=== PATIENT | female | born 1965 | race Caucasian/White ===

== ENCOUNTER → 2017-03-11 | Outpatient (CLI) | payer OTHER | LOC: FIMAGING 10:22 | PROVIDERS: ATTEND Family Medicine | DX: Z12.31 Encounter for screening mammogram for malignant neoplasm of breast (principal) | CPT/HCPCS: G0202 ==

== ENCOUNTER → 2017-04-18 | Outpatient (CLI) | payer OTHER | LOC: CIMAGING 15:52 | PROVIDERS: ATTEND Physician Assistant Medical | DX: M79.642 Pain in left hand (principal) | CPT/HCPCS: 73130-PO ==

== ENCOUNTER 2017-05-11 21:02 | Emergency (ER) | payer OTHER ==
--- NOTE | 2017-05-11 21:25 | CPEKG ---
Heart Rate: 83 RR Interval: 723 P-R Interval: 152 QRSD Interval: 84 QT Interval: 396 QTC Interval: 466 P [place]: 63 QRS [place]: -26 T Wave [place]: 53 EKG Severity - OTHERWISE NORMAL ECG - EKG Impression: SINUS RHYTHM EKG Impression: BORDERLINE LEFT AXIS DEVIATION Electronically Signed By: Antonio Torres 14-May-2017 07:46:04
--- NOTE | 2017-05-11 21:29 | EDPHY ---
H & P Time Seen by Provider: 05/11/17 21:13 HPI/ROS: CHIEF COMPLAINT: Fever, left-sided chest pain HISTORY OF PRESENT ILLNESS: 51-year-old female presents with fever and left- sided chest pain. When she awoke this morning, she felt fatigued and laid around the house all day. This afternoon, she was checking her heart rate, took a deep inspiration and noted left-sided chest discomfort with deep inspiration. The pain has been persistent since then and only occurs with deep inspiration. Just prior to arrival, she felt hot and took her temperature, which was 101 F. She took Tylenol prior to arrival. No shortness of breath or cough. No recent URI symptoms or urinary symptoms. REVIEW OF SYSTEMS: Constitutional: no chills Eyes: No visual changes ENT: No sore throat Gastrointestinal: abdominal discomfort last night after eating fried food, now resolved Genitourinary: No hematuria, no dysuria Musculoskeletal: No leg pain or swelling Skin: No rash Neurological: mild headache, no weakness Psychiatric: No depression Past Medical/Surgical History: Migraine headaches Social History: Physical Exam: General Appearance: Alert, well-appearing and smiling, does not appear in pain Eyes: Pupils equal and round, no conjunctival pallor or injection ENT, Mouth: Mucous membranes moist, no pharyngeal erythema Neck: Normal inspection Respiratory: No chest wall tenderness, lungs are clear to auscultation Cardiovascular: Regular rate and rhythm Gastrointestinal: Abdomen is soft and nontender Neurological: A&O, nonfocal, normal gait Skin: Warm and dry, no rash Extremities: Nontender, no pedal edema, negative Homans sign Psychiatric: Mood and affect normal Constitutional: Initial Vital Signs Temperature (C) 37.1 C 05/11/17 21:10 Heart Rate 74 05/11/17 21:10 Respiratory Rate 16 05/11/17 21:10 Blood Pressure 141/84 H 05/11/17 21:10 O2 Sat (%) 96 05/11/17 21:10 O2 Delivery Mode Room Air Allergies/Adverse Reactions: gabapentin [From Neurontin] Allergy (Intermediate, Verified 07/31/11 20:11) iodine [Iodine] Allergy (Intermediate, Verified 07/31/11 20:11) Penicillins Allergy (Mild, Verified 07/31/11 20:11) carbamazepine [From Carbatrol] Allergy (Verified 05/11/17 21:21) divalproex sodium [From Depakote] Allergy (Verified 05/11/17 21:22) egg [eggs] Allergy (Verified 05/11/17 21:23) resveratrol [grapes] Allergy (Verified 05/11/17 21:23) sumatriptan [From Imitrex] Allergy (Verified 05/11/17 21:22) Home Medications: Medication Instructions Recorded Migraleaf 07/31/11 Bactrim DS 05/11/17 Combipatch 0.05-0.14 mg Ptch 05/11/17 Fiber 05/11/17 Fish Oil 05/11/17 MAGNESIUM 05/11/17 Probiotic 05/11/17 SELENIUM 05/11/17 Tizanidine HCl 05/11/17 Vitamin D3 05/11/17 ZINC 05/11/17 Medical Decision Making - Diagnostics EKG Interpretation: EKG interpreted by me reveals normal sinus rhythm, rate 83, left axis deviation , no ST or T segment changes. Imaging Results: Chest x-ray independently reviewed by me reveals no acute disease. ED Course/Re-evaluation: This patient presents with fever and chest pain on inspiration. Stat EKG reveals no evidence pericarditis, ischemia or dysrhythmia. Chest x-ray reveals no evidence of pneumonia or pneumothorax. D-dimer is normal and vital signs, including oxygen saturation, are normal. I feel that I can safely exclude pulmonary embolism as diagnosis. I suspect that she has musculoskeletal pain/ pleurisy. Toradol 15 mg IV given. I feel that she is safe and stable for discharge. Warning signs discussed. Differential Diagnosis: Differential diagnosis includes though it is not limited to pneumonia, pneumothorax, pulmonary embolism, aortic dissection, pericarditis, acute coronary syndrome. - Data Points Laboratory Results: Laboratory Results 05/11/17 21:30 05/11/17 21:30 Medications Given: Discontinued Medications Ketorolac Tromethamine (Toradol) 15 mg IVP EDNOW ONE Stop: 05/11/17 22:04 Last Admin: 05/11/17 22:13 Dose: 15 mg Departure - Departure Disposition: Home, Routine, Self-Care Clinical Impression: Chest pain made worse by breathing Condition: Good Instructions: Chest Pain (ED) Additional Instructions: Tylenol every 4 hours as needed for fever and pain. Return for shortness of breath, cough, worsening symptoms or any concerns. Referrals: Chey Oconnell [Primary Care Provider] - 2-3 days, if not improved
[2017-05-11 21:37] VITALS: RESP 16
[2017-05-11 21:39] LABS: ADD MORPH? NO; FRAGMENT RBC FLAG 0 (0-99); HEMATOCRIT 36.7 % (38.0-47.0); HEMOGLOBIN 12.6 g/dL (12.6-16.3); LEFT SHIFT FLG 0 (0-99); LIPEMIA HEMOLYSIS FLAG 90 (0-99); MEAN CELL HEMOGLOBIN CONCENTR. 34.3 g/dL (32.4-36.7); MEAN CELL VOLUME 90.2 fL (81.5-99.8); MEAN PLATELET VOLUME 9.8 fL (8.7-11.7); PLATELET CLUMPS FLAG 0 (0-99); PLATELET COUNT 251 10^3/uL (150-400); RED BLOOD CELL COUNT 4.07 10^6/uL (4.18-5.33); RED CELL DISTRIBUTION WIDTH 13.9 % (11.5-15.2)
[2017-05-11 21:40] LABS: ADD DIFF? YES; ADD SCAN? NO; ATYPICAL LYMPHOCYTE FLAG 140 (0-99)
[2017-05-11 21:48] LABS: CALCIUM 9.4 mg/dL (8.5-10.4); CREATININE 1.2 mg/dL (0.6-1.0); POTASSIUM 3.9 mEq/L (3.5-5.2)
[2017-05-11 22:02] VITALS: PULSE 72
[2017-05-11 22:02] LABS: PLATELET ESTIMATE ADEQUATE (ADEQ)
[2017-05-11] MEDS ORDERED: KETOROLAC 15 MG/1 ML SDV IVP ONE (22:03)
[2017-05-11 22:04] LABS: TOXIC GRANULATION PRESENT; TOXIC VACUOLIZATION PRESENT
[2017-05-11 22:10] VITALS: BP 112/60; TEMP 99.5; O2SAT 94
== END 2017-05-11 22:44 | disposition home or self-care (01) ==
LOC: CED 21:02
DX: R07.1 Chest pain on breathing (principal)
CPT/HCPCS: 71020-PO; 80048-PO; 85025-PO; 85378-PO; 96374; J1885

== ENCOUNTER → 2017-06-09 | Outpatient (CLI) | payer OTHER | LOC: FLAB 13:19 | PROVIDERS: ATTEND Family Medicine | DX: R05 Cough (principal) ==

== ENCOUNTER → 2017-06-19 | Outpatient (CLI) | payer OTHER | LOC: CIMAGING 15:31 | PROVIDERS: ATTEND Family Medicine | DX: Z09 Encounter for follow-up examination after completed treatment for conditions other than malignant neoplasm (principal); Z87.09 Personal history of other diseases of the respiratory system | CPT/HCPCS: 71020-PO ==

== ENCOUNTER → 2017-07-22 | Outpatient (CLI) | payer OTHER ==
--- NOTE | 2017-07-22 14:41 | CPEKG ---
Heart Rate: 69 RR Interval: 870 P-R Interval: 156 QRSD Interval: 78 QT Interval: 404 QTC Interval: 433 P [place]: 52 QRS [place]: -30 T Wave [place]: 43 EKG Severity - OTHERWISE NORMAL ECG - EKG Impression: SINUS RHYTHM EKG Impression: LEFT AXIS DEVIATION Electronically Signed By: Juarez Molina 22-Jul-2017 15:15:26
== END ==
LOC: FCP 14:13
PROVIDERS: ATTEND Family Medicine
DX: R07.9 Chest pain, unspecified (principal)

== ENCOUNTER → 2018-03-16 | Outpatient (CLI) | payer BC | LOC: FIMAGING 09:00 | PROVIDERS: ATTEND Obstetrics & Gynecology | DX: Z12.31 Encounter for screening mammogram for malignant neoplasm of breast (principal); Z13.820 Encounter for screening for osteoporosis; M85.89 Other specified disorders of bone density and structure, multiple sites; Z85.3 Personal history of malignant neoplasm of breast; Z79.890 Hormone replacement therapy ==

== ENCOUNTER 2018-05-25 19:49 | Emergency (ER) | payer BC ==
--- NOTE | 2018-05-25 20:44 | EDPHY ---
H & P Stated Complaint: Short of Breath since Friday, worse today. Time Seen by Provider: 05/25/18 20:00 HPI/ROS: This patient c/o dyspnea and a feeling of chest tightness. She presented to her Primary care physician Friday, 3 days [employer]AL[employer] with these symptoms present at that time for 2-3 days and was treated for seasonal allergies and reactive airways with singulair, albuterol MDI tid and benadryl without improvement. In fact, the patient reports that her symptoms have worsened with increased dyspnea and tightness in her chest that she describes as 5/10 intensity, substernal location that worsens with a deep breath or coughs. She states that the tightness is been constant since onset 5 days ago or so. She notes no exacerbating factors for symptoms except some dyspnea on exertion. 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 ROS: Constitutional: No fevers or chills HEENT: She denies any coryza recently. She has not noticed any sneezing. No itching eyes or other complaints. Pulmonary: As per HPI. No significant coughing. No hemoptysis. Cardiovascular: No leg swelling or calf pain. No heart palpitations or lightheadedness. No diaphoresis. GI: No abdominal pain, nausea or vomiting : No complaints new line integumentary: No complaints Neuro: No complaints Complete review of symptoms otherwise negative Source: Patient Exam Limitations: No limitations - Personal History LMP (Females 10-55): Post Menopausal Current Tetanus/Diphtheria Vaccine: Unsure Current Tetanus Diphtheria and Acellular Pertussis (TDAP): Unsure - Medical/Surgical History PMH: Family history is negative for premature coronary artery disease Hx Asthma: No Hx Chronic Respiratory Disease: No Hx Diabetes: No Hx Cardiac Disease: No Hx Renal Disease: No Hx Cirrhosis: No Hx Alcoholism: No Hx HIV/AIDS: No Hx Splenectomy or Spleen Trauma: No Other PMH: TBI, MIGRAINES, GERD, VERTIGO, BACK PAIN > FUSION, APPY, SINUS PAIN, BIPOLAR FROM TBI, DEPRESSION. - Family History Significant Family History: Vascular disease (Her father had a DVT with a congenital coagulopathy but patient was tested and was negative per her report) - Social History Smoking Status: Never smoked Alcohol Use: Rarely Drug Use: None Additional Social History: She is accompanied by her . - Physical Exam Exam: General Appearance: Pleasant moderately obese female Alert, no distress. Eyes: Pupils equal and round no pallor or injection. ENT, Mouth: Mucous membranes moist. Respiratory: There are no retractions, lungs are clear to auscultation. Cardiovascular: Regular rate and rhythm. No murmur gallop or rub. No JVD. No peripheral edema or calf tenderness Gastrointestinal: Abdomen is soft and nontender, no masses, bowel sounds normal. Neurological: GCS 15 Skin: Warm and dry, no rashes. Musculoskeletal: Neck is supple nontender. Extremities are symmetrical, full range of motion. Psychiatric: Mood and affect are normal DIFFERENTIAL DIAGNOSIS: After history and physical exam differential diagnosis was considered for reactive airway disease, myocardial ischemic disease, bronchitis, GERD, pneumonia, pneumothorax, pleurisy, bronchitis Constitutional: Initial Vital Signs Temperature (C) 36.7 C 05/25/18 20:00 Heart Rate 82 05/25/18 20:00 Respiratory Rate 18 05/25/18 20:00 Blood Pressure 138/83 H 05/25/18 20:00 O2 Sat (%) 95 05/25/18 20:00 O2 Delivery Mode Room Air Allergies/Adverse Reactions: gabapentin [From Neurontin] Allergy (Intermediate, Verified 07/31/11 20:11) iodine [Iodine] Allergy (Intermediate, Verified 07/31/11 20:11) Penicillins Allergy (Mild, Verified 07/31/11 20:11) carbamazepine [From Carbatrol] Allergy (Verified 05/11/17 21:21) divalproex sodium [From Depakote] Allergy (Verified 05/11/17 21:22) egg [eggs] Allergy (Verified 05/11/17 21:23) lithium Allergy (Verified 05/25/18 20:14) resveratrol [grapes] Allergy (Verified 05/11/17 21:23) sumatriptan [From Imitrex] Allergy (Verified 05/11/17 21:22) Home Medications: Medication Instructions Recorded Migraleaf 07/31/11 Bactrim DS 05/11/17 Combipatch 0.05-0.14 mg Ptch 05/11/17 Fiber 05/11/17 Fish Oil 05/11/17 MAGNESIUM 05/11/17 Probiotic 05/11/17 SELENIUM 05/11/17 Tizanidine HCl 05/11/17 Vitamin D3 05/11/17 ZINC 05/11/17 Flonase Nasal [place] 05/25/18 Levalbuterol Inhaler [Xopenex Hfa 2 puffs IH Q4 PRN #1 mdi 05/25/18 Inhaler] Ranitidine HCl 05/25/18 Singulair 05/25/18 Trintellix 05/25/18 Medical Decision Making - Diagnostics EKG Interpretation: 12 lead EKG performed at 8:51 p.m. Reveals sinus rhythm at 69 Intervals: Normal throughout [place]: P of 18, QRS of -20, T of 32 degrees Overall assessment sinus rhythm borderline left axis deviation Imaging Results: Two view chest x-rays: Normal by my interpretation Imaging: I viewed and interpreted images myself ED Course/Re-evaluation: Studies: POC CBC is normal, basic metabolic panel normal, troponin normal, D- dimer normal Peak flow in the mid 300 followed by a peak flow 425 with predicted of 425. After negative workup, patient still has a sense of mild tightness in her chest that improved with Xopenex nebulizer. I used Xopenex since the patient complained of the stimulation from the albuterol when she used at nighttime. Discussion: Pleasant female here with dyspnea and chest tightness that feels more bronchial than other to the patient with that workup tonight that ruled out pneumonia, pneumothorax, with negative D-dimer and low risk factor effectively ruled out PE, EKG normal troponin with no evidence of acute coronary syndrome. I think that she likely does have reactive airways with incomplete relief from her initial treatment. She was only using her is albuterol 3 times a day. Will try Xopenex to avoid the unpleasant stimulation symptoms then increase the frequency to Q 4. She will continue her Singulair and follow up with primary care physician. She understands need to return emergency department should she develop worsening symptoms despite treatment plan - Data Points Laboratory Results: 05/25/18 05/25/18 21:34 21:31 POC Sodium 138 mEq/L mEq/L (135-145) POC Potassium 4.8 mEq/L mEq/L (3.3-5.0) POC Chloride 105.0 mEq/L mEq/L (97-110) POC Total CO2 21 mEq/L L mEq/L (22-31) POC BUN 20 mg/dL mg/dL (7-23) POC Creatinine 1.1 mg/dL H mg/dL (0.6-1.0) POC Glucose 98 mg/dL mg/dL (70-100) POC Calcium 9.9 mg/dL mg/dL (8.5-10.4) POC Troponin I 0.00 ng/mL ng/mL (0.00-0.08) Medications Given: Discontinued Medications Levalbuterol (Xopenex 1.25mg Neb) 1.25 mg IH EDNOW ONE Stop: 05/25/18 22:54 Last Admin: 05/25/18 23:05 Dose: 1.25 mg Point of Care Test Results: CBC CBC Collection Date 05/25/18 CBC Collection Time 21:20 WBC 3.9 RBC 3.7 HGB 10.9 HCT 32.5 PLT 145 Neut # 2.2 Neut 46.4 LYMPH # 0.9 LYMPH 14.7 Other WBC # 0.2 Other WBC 3.2 MCV 82.5 Chemistry 05/25/18 05/25/18 21:34 21:31 POC Sodium 138 mEq/L mEq/L (135-145) POC Potassium 4.8 mEq/L mEq/L (3.3-5.0) POC Chloride 105.0 mEq/L mEq/L (97-110) POC Total CO2 21 mEq/L L mEq/L (22-31) POC BUN 20 mg/dL mg/dL (7-23) POC Creatinine 1.1 mg/dL H mg/dL (0.6-1.0) POC Glucose 98 mg/dL mg/dL (70-100) POC Calcium 9.9 mg/dL mg/dL (8.5-10.4) POC Troponin I 0.00 ng/mL ng/mL (0.00-0.08) D-Dimer D-Dimer Collection Date 05/25/18 D-Dimer Collection Time 21:20 D-Dimer (ng/ml) 136 Departure - Departure Disposition: Home, Routine, Self-Care Clinical Impression: Chest tightness Dyspnea Qualifiers: Dyspnea type: shortness of breath Qualified Code(s): R06.02 - Shortness of breath Condition: Good Instructions: Chest Pain (ED), Shortness of Breath (ED) Additional Instructions: Diagnosis: Short of breath Your peak flow, blood count, electrolytes, kidney function, EKG, heart enzymes are normal tonight. We also did a D-dimer evaluate for potential blood clot in her D-dimer is normal, effectively ruling out blood clot in your case. Plan: Continue albuterol inhaler with spacer-2 puffs every 4 hr if needed for cough, wheeze or shortness of breath If you're bothered by the stimulation from the albuterol, use the Xopenex inhaler instead of same plan -2 puffs per 4 hr as needed for wheeze or shortness of breath. Continue singular Follow up with primary care physician for any ongoing symptoms Return emergency department for any significant worsening despite the treatment plan. Also recommend follow up with the instrument repair technician for any ongoing symptoms despite the treatment plan Referrals: Chey Oconnell [Primary Care Provider] - As per Instructions Reed Allison MD [Medical Doctor] - As per Instructions Prescriptions: Levalbuterol Inhaler [Xopenex Hfa Inhaler] 2 puffs IH Q4 PRN #1 mdi PRN Reason: Wheezing
--- NOTE | 2018-05-25 20:53 | CPEKG ---
Heart Rate: 69 RR Interval: 870 P-R Interval: 136 QRSD Interval: 82 QT Interval: 408 QTC Interval: 437 P [place]: 18 QRS [place]: -28 T Wave [place]: 33 EKG Severity - OTHERWISE NORMAL ECG - EKG Impression: SINUS RHYTHM EKG Impression: BORDERLINE LEFT AXIS DEVIATION Electronically Signed By: Bubba Love 25-May-2018 21:04:08
[2018-05-25] MEDS ORDERED: LEVALBUTEROL 1.25 MG/3 ML DEYVIAL IH ONE (22:53)
[2018-05-25 23:36] VITALS: BP 121/78
== END 2018-05-25 23:26 | disposition home or self-care (01) ==
LOC: CED 19:49
DX: R06.02 Shortness of breath (principal); R07.9 Chest pain, unspecified; K21.9 Gastro-esophageal reflux disease without esophagitis
CPT/HCPCS: 71046-PO; 80048-PO; 84484-PO

== ENCOUNTER → 2018-07-10 | Outpatient (CLI) | payer BC | LOC: CIMAGING 11:40 | PROVIDERS: ATTEND Specialist | DX: J40 Bronchitis, not specified as acute or chronic (principal) | CPT/HCPCS: 71046-PO ==